=== PATIENT | male | born 1970 | race Caucasian/White ===

== ENCOUNTER 2018-09-17 20:50 | Emergency (ER) | payer BC, MEDICAID ==
[~2018-09-17 20:50] MED LIST: AMOX875T60 PO; OXYC-865 PO
[2018-09-17 20:54] VITALS: BP 138/102
[2018-09-17] MEDS ORDERED: AMPH20TA18 PO (20:57)
--- NOTE | 2018-09-17 21:00 | ER Report ---
History and Physical Time Seen By MD: 20:56 Hx. of Stated Complaint: PATIENT HAS HIS LEFTY UPPER WISDOM TOOTH PULLED A COUPLE OF DAYS AGO, HE THINKS HE MAY HAVE DRY SOCKET, HAVING A LOT OF PAIN THAT RADIATES TO HEAD AND NECK. HPI/ROS CHIEF COMPLAINT: dental pain HISTORY OF PRESENT ILLNESS: This is a 48 year old male. Pain in area of left upper 3rd molar removal. Worried about dry socket. Has appointment with his dentist in 2 days. Allergies: Coded Allergies: No Known Drug Allergies (Unverified , 11/19/16) Home Meds Active Scripts Oxycodone Hcl/Acetaminophen (PERCOCET 5-325 MG TABLET) 1 Each Tablet, 1 EACH PO Q4H PRN for PAIN, #8 TAB 0 Refills Prov:JASMINA SALAS MD 09/17/18 Reported Medications Amphet Asp/Amphet/D-Amphet (ADDERALL 20 MG TABLET) 20 Mg Tablet, 3 TAB PO QDAY 09/17/18 Discontinued Scripts Oxycodone Hcl/Acetaminophen (PERCOCET 5-325 MG TABLET) 1 Each Tablet, 1 EACH PO Q4-6H PRN for PAIN, #10 Prov:BETTIE MORALES DO 11/19/16 Amoxicillin (AMOXICILLIN) 875 Mg Tablet, 1 TAB PO Q12H for infection, #14 TAB Prov:BETTIE MORALES DO 11/19/16 Reviewed Nurses Notes: Yes Hx Substance Use Disorder: No Hx Alcohol Use: No Constitutional Vital Sign - Last 24 Hours 09/17/18 20:54 Temp 97.6 Pulse 95 Resp 16 B/P (MAP) 138/102 Pulse Ox 94 O2 Delivery Room Air Physical Exam Swelling and redness around removed 3rd molar upper left. Patient without obvious dry socket, but cannot rule out entirely. No sign of drainage or severe infection. Patient to use Percocet for pain. Patient would like to wait on antibiotics until he sees his dentist on Tuesday. Medical Decision Making ED Course/Re-evaluation ED Course Percocet for pain, will see dentist on Tuesday. Decision to Disposition Date: Sep 17, 2018 Decision to Disposition Time: 21:03 Depart Departure Latest Vital Signs Vital Signs Date Time Temp Pulse Resp B/P (MAP) Pulse Ox O2 Delivery O2 Flow Rate FiO2 09/17/18 20:54 97.6 95 16 138/102 94 Room Air Impression: Primary Impression: Pain, dental Condition: Improved Disposition: HOME OR SELF-CARE New Scripts Oxycodone Hcl/Acetaminophen (PERCOCET 5-325 MG TABLET) 1 Each Tablet 1 EACH PO Q4H PRN for PAIN, #8 TAB 0 Refills Prov: JASMINA SALAS MD 09/17/18 Patient Instructions: Dry Socket (ED) Additional Instructions: Ibuprofen 200mg over the counter tablets, take 4 tablets every 6 hours for pain. Take Percocet 5/325, one every 4 hours as needed for severe pain. Caution as thi s medication can make you drowsy. Follow-up with your dentist as planned on Tuesday. JASMINA SALAS MD Sep 17, 2018 21:00
[2018-09-17] MEDS ORDERED: OXYC-865 PO (21:08)
[2018-09-17] MEDS ORDERED: oxyCODONE/ACETAMIN 5/325MG TH 2 TAB/BOTTLE PO ONE (21:10)
== END 2018-09-17 21:12 | disposition home or self-care (01) ==
LOC: ER 20:57
DX: K08.89 Other specified disorders of teeth and supporting structures (principal)
CPT/HCPCS: 99283